=== PATIENT | female | born 1955 | race Caucasian/White ===

== ENCOUNTER 2020-03-29 22:06 | Emergency (ER) | payer OTHER, BC ==
[~2020-03-29] VITALS: Ht 180.3 cm; Wt 82.6 kg
[2020-03-29 22:07] VITALS: BP 124/81
[2020-03-29] MEDS ORDERED: CELEBREX50 MG PO (22:13)
[2020-03-29] MEDS ORDERED: SEROQUEL 100 M100 M1 PO (22:14)
[2020-03-29] MEDS ORDERED: LISINOPRIL10 MG PO (22:14)
[2020-03-29 23:12] LABS: ABSOLUTE NEUTROPHILS 2.5 thou/uL (1.4-8.2); BASOPHILS 0.9 % (0.0-2.0); EOSINOPHILS 3.7 % (0.0-3.0); HEMATOCRIT 37.1 % (37.0-47.0); HEMOGLOBIN 12.7 gm/dL (12.0-15.0); MCH 30.7 pg (26.0-34.0); MCHC 34.2 g/dL (28.0-37.0); MCV 89.7 fL (80.0-100.0); MONOCYTES 9.7 % (1.0-8.0); PLATELET COUNT 272 thou/uL (150-400); POLYS 42.7 % (36.0-66.0); RBC 4.14 mil/uL (4.20-5.00); RDW 14.4 % (10.5-14.5); WBC 5.9 thou/uL (4.0-11.0)
[2020-03-29 23:15] LABS: URINE BILIRUBIN NEGATIVE (Negative); URINE BLOOD TRACE (Negative); URINE CLARITY CLEAR; URINE COLOR YELLOW; URINE GLUCOSE-RANDOM* NEGATIVE (Negative); URINE KETONES NEGATIVE (Negative); URINE NITRITE-REFLEX NEGATIVE (Negative); URINE PROTEIN (DIPSTICK) NEGATIVE (Negative); URINE UROBILINOGEN 0.2 E.U./dl (0.2-1.0)
[2020-03-29 23:18] LABS: URINE LEUKOCYTES-REFLEX 3+ (Negative)
[2020-03-29 23:20] LABS: ANION GAP 5 mmol/L (7-16); BUN 18 mg/dL (7-18); CALCIUM 9.9 mg/dL (8.5-10.1); CHLORIDE 101 mmol/L (98-107); CO2 30 mmol/L (21-32); CREATININE 0.8 mg/dL (0.6-1.0); GLUCOSE 98 mg/dL (74-106); POTASSIUM 4.4 mmol/L (3.5-5.1); SODIUM 136 mmol/L (136-145)
[2020-03-29 23:21] LABS: ALBUMIN 3.7 g/dL (3.4-5.0); DIRECT BILIRUBIN < 0.1 mg/dL (<0.1-0.2); SGOT 12 U/L (15-37); SGPT 23 U/L (14-59); TOTAL BILIRUBIN 0.4 mg/dL (0.2-1.0); TOTAL PROTEIN 6.5 g/dL (6.4-8.2)
[2020-03-29 23:22] LABS: AMP/METHAMP Negative (Negative); BARBITURATES Negative (Negative); BENZODIAZEPINES POSITIVE (Negative); COCAINE Negative (Negative); METHADONE Negative (Negative); OPIATES Negative (Negative); PCP Negative (Negative)
[2020-03-29 23:34] LABS: BACTERIA-REFLEX 1-9 Few /HPF (None Seen); CASTS None Seen /LPF (None Seen); CRYSTALS None Seen /LPF (None Seen); MUCUS 0-3 Light strn/LPF (None Seen); SQUAMOUS 0-3 Few /LPF (0-3); URINE RBC 0-2 Rare /HPF (0-2); URINE WBC-REFLEX 6-15 Few /HPF (0-5)
[2020-03-30 04:44] VITALS: BP 120/63
[2020-03-30 04:55] VITALS: BP 117/71
--- NOTE | 2020-03-30 07:28 | EKG ---
[facility] [place] [address] ELECTROCARDIOGRAM REPORT Name: THELMA GRACE Room #: [facility]#: [id number] Admission: 03/29/20 Attend Phys: Discharge: 03/30/20 Date of : 51 Report #: [id number] [facility] ED Test Date: 2020-03-29 Test Time: 22:39:46 Pat Name: THELMA GRACE Department: Room: 170 Gender: F Evp Strategy: CRISTOFER : 1955 Requested By: Rafaela Nation Order Number: [id number] MD: Ezekiel Wiseman Measurements Intervals [place] Rate: 79 P: 0 WI: 210 QRS: -26 QRSD: 76 T: 39 QT: 371 QTc: 426 Interpretive Statements Sinus rhythm Probable left atrial enlargement Borderline left axis deviation Low voltage, precordial leads Abnormal R-wave progression, early transition No previous ECG available for comparison Electronically Signed On 03-30-2020 7:28:39 TABLET TESTER by Ezekiel Wiseman [email or web address] <ELECTRONICALLY SIGNED> By: Ezekiel Wiseman MD, [facility] 03/30/20 0728 38 38 Ezekiel Wiseman MD, FACC /EPI
== END 2020-03-30 04:59 | disposition still patient (30) ==
LOC: ER 22:06 → EROBS 03-30 04:33 → ER 03-30 04:33
PROVIDERS: Emergency Medicine
DX: F31.9 Bipolar disorder, unspecified (principal); F22 Delusional disorders; F41.9 Anxiety disorder, unspecified; N39.0 Urinary tract infection, site not specified; I10 Essential (primary) hypertension; R05 Cough; F17.200 Nicotine dependence, unspecified, uncomplicated; Z20.822 Contact with and (suspected) exposure to COVID-19; Z79.899 Other long term (current) drug therapy; Z98.51 Tubal ligation status

== ENCOUNTER 2020-03-30 04:37 | Inpatient (IN) | payer OTHER, BC ==
[~2020-03-30] VITALS: Ht 182.9 cm; Wt 70.8 kg
[~2020-03-30 04:37] MED LIST: CELEBREX50 MG PO; LISINOPRIL10 MG PO; SEROQUEL 100 M100 M1 PO
--- NOTE | 2020-03-30 06:31 | NUR ---
Pt admitted to unit at 0505 from ED. Brought to unit by MENDY Manzanares. Report received from MENDY Manzanares. Pt negative for covid. Assessed/cleared by MARIA M Ryan, in ED prior to coming to unit. Dr. Hill notified and orders received to continue home medications at this time. Pt is A&O x 4. Pt is calm and cooperative. Pt is ambulatory. Pt rates anxiety 4 at this time. Reports has not slept for several days/weeks. Pt denies pain. Pt denies SI/HI. 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 Pt does not want information disclosed to anyone but son. Dr. Hill made aware at time of admission. Explained to pt that DPOA would probably not be changed during this admission. Pt is resting in bed at this time. admission.
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
[2020-03-30 19:25] VITALS: BP 141/74
--- NOTE | 2020-03-31 04:35 | NUR ---
Assumed care of pt @ 1900. Pt calm et cooperative this shift. Took medications whole without difficulty. Ambulates the halls ad beth with steady gait. VSWNL. Health assessment with no abnormalities noted at present time. Denies SI/HI/AVH at present time. Socialized for a small amount of time in dayroom with peers. Currently resting in bed with eyes closed. Will continue to monitor per unit protocol.
[2020-03-31 09:50] VITALS: BP 153/73
--- NOTE | 2020-03-31 15:06 | NUR ---
[place] recieved a VM from Pt's , Gabriel Mckeon [phone],asking for a phone call back because he was wanting information on the Pt. @0900 Prior to calling Gabriel back SW had a conversation with the Pt concerning the matter. Pt restated she did not want anyone to have information concerning her except her son Jayden. [place] asked was it okay to let Gabriel know this information. Pt agreed. @915am [place] returned PC call to Gabriel. Gabriel requested information on Pt and requested a PC from Dr. Hill. [place] informed that the Pt requested no information be shared concerning her care with anyone except her son, Jayden. Gabriel stated, " I am her and DPOA, I should be able to have information on her treatment." [place] educated Gabriel on DPOA and incapcitation. SW informed of Pt's rights. Gabriel stated the Pt was found incapcitated by the hospital she was at previously and info was in the Pt's record. [place] explained that [facility] did not recieve any information about incapcitation of the Pt. Also explained that the Pt has not been deemed incapacitated by Dr. Hill while on the [facility]. Gabriel stated he would call the hospital to have incapacitation letter sent. [place] provided fax number
--- NOTE | 2020-03-31 15:29 | NUR ---
@about 1300 [place] recieved a Phone call from Dr. Elmo Peck, . Dr. Peck is the Pt PCP. Dr. Peck inquired about Pt wishes on information being given to her . SW informed Pt has requested no information be given to anyone except her son Jayden. Dr. Peck was okay with this information and provided a fax to send discharge information [phone].
--- NOTE | 2020-03-31 15:32 | NUR ---
@ 2975 [place] recieved a call from Mariely, , from [facility]. Mariely inquired if [facility] had recieved clinical information on Pt that was faxed. [place] confirmed [facility] recieved the information. Mariely asked if [facility] reassess Pt when admitted because Pt's has reached out to her concerning Pt while on SB. [place] informed that all Pts are assessed by the medical team at admission. [place] also informed that SW has been in contact with Pt's , Pt's has not been determined incapcitated, and Pt has requested no information be given out to her . Mariely had no further question or concerns.
--- NOTE | 2020-03-31 15:45 | NUR ---
[place] contacted Jayden , , concerning discharge. Jayden stated he would be able to pick the Pt up. Jayden stated that he and the Pt have planned for Pt to live with his in [place], [place] for awhile. Edwin also stated he was willing to assist the Pt with going to any follow up appointments. D/C is set for 04/03/2020 @ 0900. Pt has an intake appointment for therapy and psychiatry with [facility] on 04/04/2020 @ 10 am.
--- NOTE | 2020-03-31 18:03 | NUR ---
Alert and orientated X4. Up ambulating without difficulty. Tearful in early AM stating that she does not belong here, other pts conditions upsetting her. Wants to be discharged. After lunch reported that she had indigestion that resolved after emesis that she estimated was about 4 oz. States it was half digested food. PRN Mylanta given for indigestion after dinner. Denies SI/HI. Breath sounds clear. Reg HR auscultated. Color pink with brisk capillary refill and palpable peripheral pulses. No edema. Independent with voiding. Hypoactive bowel sounds over soft, rounded abdomen. Spoke with Louisa BE and Dr. Hill. Currently interacting with peers without s/o distress.
[2020-03-31 20:27] VITALS: BP 154/90
--- NOTE | 2020-04-01 05:09 | NUR ---
Assumed care of pt @ 1900. Pt calm et cooperative this shift. Took medications whole without difficulty. Ambulates the halls ad beth with steady gait. VSWNL. Health assessment with no abnormalities noted this shift. Denies SI/HI/AVh at present time. Socialized with peers in dayroom until HS. Took 2 doses of Mylanta this shift due to nausea with medications. Pt later reported that she had one episode of vomitus. Pt woke up several times during the noc but refused second dose of Trazodone. Currently sitting in dayroom watching tv. Pt was given a lemon [place] soda to help quiet her stomach. Will continue to monitor per unit protocol.
[2020-04-01 08:20] VITALS: BP 139/70
--- NOTE | 2020-04-01 16:13 | NUR ---
SPENT MAJORITY OF AM OBBSESSING ABOUT MEDICATION AND REPORTED RECENT N/V. INSISTING THAT PIPER HAS HAD 2-3 EPISODES OF EMESIS SINCE ARRIVING AT HOSPITAL AFTER "NEVER EVER HAVING ANY TROUBLE WITH MY STOMACH MYU WHOLE LIFE" REFUSED AM TRILRPTAL AND SEROQUEL INSISITING THAT THOSE WERE THE ONLY NEW MEDS THEREFORE HAD TO BE CAUSING EMESIS, DID SPEAK WITH DR. DOTSON DURING ROUNDS AND ORDER RECEIVED TO SOLIS SHELL FOR NAUSEA. DENIES SI DURING STATING "I WOULDN'T HAVE ANYM TROUBLE AT ALL IF IT WEREN'T FOR ME " "IF THEY THINK IM BIPOLAR IO WANDER EHAT HE WOULD BE" T
[2020-04-01 19:29] VITALS: BP 120/69
--- NOTE | 2020-04-02 05:28 | NUR ---
Assumed care of pt @ 1900. Pt calm et cooperative this shift. took medications whole without difficulty. Ambulates the halls ad beth with steady gait. VSWNL. Health assessment with no abnormalities noted at present time. Denies SI/HI/AVH at present time. Pt c/o migraine h/a this shift et was given PRN Tylenol 650mg with only partial relief. Currently watching tv in dayroom. Will continue to monitor per unit protocol.
[2020-04-02 08:07] VITALS: BP 148/72
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
[2020-04-02 19:16] VITALS: BP 119/65
--- NOTE | 2020-04-03 04:44 | NUR ---
Assumed care for pt at 1900. Pt sitting in dining room watching [place] game. Pt affect is brighter and appears to be in good spirits. Pt rates anxiety 1/10. Denies depression, SI/HI. Pt is set to discharge tomorrow morning at 9:00. Pt denies having any pain. Pt is compliant with nursing assessment and medications. Pt started on Melatonin and had increase in Seroquel up to 50 mg. Pt slept approximately 5-6 hours. Pt has orders for lab draw (CBC) this morning. Will continue to monitor for any changes and safety per unit/hospital protocol.
[2020-04-03 05:54] LABS: HEMOGLOBIN 12.1 gm/dL (12.0-15.0); MCH 30.2 pg (26.0-34.0); MCHC 33.7 g/dL (28.0-37.0); MCV 89.8 fL (80.0-100.0); RBC 4.01 mil/uL (4.20-5.00); WBC 4.4 thou/uL (4.0-11.0)
[2020-04-03 06:03] LABS: CALCIUM 8.7 mg/dL (8.5-10.1); CREATININE 0.7 mg/dL (0.6-1.0); POTASSIUM 4.3 mmol/L (3.5-5.1)
--- NOTE | 2020-04-03 06:19 | NUR ---
Lab called unit to notify of critical result. Pt sodium 119. Ally Partida APRN notified at 0620. No new orders received at this time.
[2020-04-03 08:44] VITALS: BP 125/74
[2020-04-03] MEDS ORDERED: SEROQUEL 100 M100 M1 PO (08:50)
[2020-04-03] MEDS ORDERED: TRAZODONE HCL50 MG PO (08:51)
[2020-04-03] MEDS ORDERED: PROTONIX 20 MG20 M1 PO (08:51)
[2020-04-03] MEDS ORDERED: OXCARBAZEPINE300 MG PO (08:51)
[2020-04-03] MEDS ORDERED: MELATONIN5 M1 PO (08:52)
--- NOTE | 2020-04-03 09:06 | NUR ---
[place] was informed by nursing roustabout supervisor that pt's discharge for this morning has been canceled due to her sodium levels being too high. [place] contacted Jayden and explained that she will not discharge this morning, but may this afternoon. The doctor needs to do some follow-up work first. SW team will continue to follow pt during her stay on this unit.
[2020-04-03 09:34] VITALS: BP 125/74
[2020-04-03 09:56] LABS: CALCIUM 8.9 mg/dL (8.5-10.1); CREATININE 0.6 mg/dL (0.6-1.0)
[2020-04-03 11:19] VITALS: BP 125/74
--- NOTE | 2020-04-03 12:36 | NUR ---
[place] spoke to Jayden who informed Pt will no longer be going to [place] with trudie. Pt will instead be staying in [facility] with her daughter. An intake appointment for was scheduled with [facility] man[facility] 04/04/20 @10 am for an intake
--- NOTE | 2020-04-03 12:45 | NUR ---
ASSUMED CARE AT 0700 THIS MORNING. PT. WAS SLATED TO D/C AT 0900 BUT HER SODIUM FROM THE LAB DRAW DONE THIS MORNING RETURNED LOW. DR. HAQUE ASKED FOR A STATE BMP TO BE DRAWN AND DELAY THE D/C UNTIL THIS LAB RETURNES. PT. WAS INFORMED OF THESE DEVELOPMENTS. SHE STATED SHE UNDERSTOOD. HER SON WAS CALL AND INFORMED OF THE DELAY. HER LAB RETURNED SATISFACTORY TO THE DR. WROTE FOR PT. TO BE DISCHARGED. SON ARRIVED AT 1230 IN A WHITE VW. SHE TOOK WITH HER THE D/C PACKET WITH [employer]CR[employer]TS FOR FILLING AT THE PT. PHARMACY. ALSO, SHE TOOK D/C MED. LIST. CLOTHING, MEDICATIONS SHE BROUGHT WITH HER TO THE HOSPITAL, SUITCASES (4), COATS, SECURITY ITEMS (SHE HAD STORED IN SECURITY), HER CPAP MACHINE. ALL WERE LOADED INTO THE CAR. PT. DROVE OFF WITH SON, AND DAUGHTER TOWARDS HOME.
== END 2020-04-03 12:30 | disposition home or self-care (01) | DRG 885 ==
LOC: SBH
PROVIDERS: Hospitalist; ADMIT Psychiatry & Neurology Psychiatry; ATTEND Psychiatry & Neurology Psychiatry
DX: F31.9 Bipolar disorder, unspecified (principal); N39.0 Urinary tract infection, site not specified; E87.1 Hypo-osmolality and hyponatremia; F41.9 Anxiety disorder, unspecified; F17.210 Nicotine dependence, cigarettes, uncomplicated; I10 Essential (primary) hypertension; Z71.6 Tobacco abuse counseling; Z79.899 Other long term (current) drug therapy
CPT/HCPCS: 10880